=== PATIENT | female | born 1960 | race Caucasian/White ===

== ENCOUNTER 2022-09-05 08:28 | Day surgery (SDC) | payer OTHER ==
[2022-08-27 15:05] VITALS: BMI 21.4
[2022-09-05] MEDS: PHENYLEPHRINE 2.5% OPTHALMIC DROP 2ML BOTTLE ONE ×3 (08:55→09:05)
[2022-09-05] MEDS: TROPICAMIDE 1% OPHTH SOLN 15 ML BOTTLE ONE ×3 (08:55→09:05)
[2022-09-05] MEDS: CIPROFLOXACIN 0.3% EYE DROPS 5 ML BOTTLE ONE ×3 (08:55→09:05)
[2022-09-05] MEDS: CYCLOPENTOLATE 2% OPHTH SOLN 2 ML BOTTLE ONE ×3 (08:55→09:05)
[2022-09-05 08:58] VITALS: TEMP 97.5
[2022-09-05] MEDS ORDERED: TETRACAINE 0.5% OPHTH SOLN 2 ML BOTTLE ONE (09:25)
[2022-09-05] MEDS ORDERED: BSS (NA/CA/MG/K) BALANCED SALT SOLUTION OPHTH SOLN 15 ML BOTTLE ONE (09:25)
[2022-09-05] MEDS ORDERED: LIDOCAINE 1% P/F 10 MG/ML VIAL ONE (09:25)
[2022-09-05] MEDS ORDERED: NEO/POLYMYX B SULF/DEXAMETH OPHTHALMIC 5ML BOTTLE ONE (09:25)
[2022-09-05] MEDS ORDERED: CARBACHOL 0.01% INTRA-OCULAR 1.5 ML VIAL ONE (09:25)
[2022-09-05 11:01] VITALS: BP 90/42; PULSE 51; RESP 18
== END 2022-09-05 11:17 | disposition home or self-care (01) ==
LOC: FASU 08:28
PROVIDERS: ATTEND Ophthalmology
PROC: 08RK3JZ Replacement of Left Lens with Synthetic Substitute, Percutaneous Approach (ICD-10-PCS; principal; 2022-09-05 10:41)
DX: H26.8 Other specified cataract (principal)
CPT/HCPCS: 66984; V2632; C2632